=== PATIENT | male | born 1945 | race African-American/Black ===

== ENCOUNTER → 2016-11-27 | Outpatient (CLI) | payer OTHER ==
[~2016-11-27] VITALS: Ht 167.6 cm; Wt 79.4 kg
[~2016-11-27] MED LIST: ADVAIR 250/501 DISK IH; AMLODIPINE BESYL5 MG PO; COMBIVENT RESPIM4 GM IH; COZAAR50 MG PO; FLOMAX0.4 MG PO; LEVAQUIN500 MG PO; MELOXICAM15 MG PO; MICROZIDE12.5 M1 PO; NORVASC10 MG PO; PRAVACHOL40 MG PO; PROTONIX40 MG PO; TRAVATAN Z5 ML BOTH EYES; VITAMIN D31000 UNI2 PO; ZANTAC150 MG PO
== END | disposition home or self-care (01) ==
LOC: AMB 13:34
DX: K57.32 Diverticulitis of large intestine without perforation or abscess without bleeding (principal); K64.8 Other hemorrhoids; Z87.11 Personal history of peptic ulcer disease; I10 Essential (primary) hypertension; J43.9 Emphysema, unspecified; Z99.81 Dependence on supplemental oxygen; G47.30 Sleep apnea, unspecified; E78.5 Hyperlipidemia, unspecified; Z87.891 Personal history of nicotine dependence
CPT/HCPCS: 88305; 93005

== ENCOUNTER 2017-01-15 12:34 | Inpatient (IN) | payer OTHER ==
[~2017-01-15] VITALS: Ht 157.5 cm; Wt 85.0 kg
[2017-01-15 13:24] LABS: EOSINOPHIL (%) 0.3 % (0-5); HEMATOCRIT 48.4 % (38.0-50.0); IMMATURE GRANULOCYTE (%) 0.4 % (0.0-0.7); IMMATURE GRANULOCYTE COUNT 0.1 K/uL; INSTRUMENT ABS NEUTROPHIL CT 10.3 K/uL; LYMPHOCYTE COUNT 0.8 K/uL (1.0-2.8); MCH 28.5 PG (29.0-34.0); MCHC 31.6 G/DL (30.0-36.0); MCV 90.3 FL (86-99); MEAN PLAT.VOLUME 9.7 uM^3 (9.0-12.4); MONOCYTE (%) 10.9 % (3-12); MONOCYTE COUNT 1.4 K/uL (0-0.8); NEUTROPHIL (%) 82.1 % (45-76); NEUTROPHIL COUNT 10.3 K/uL (1.8-6.4); PLATELET COUNT 326 K/uL (156-360); RBC DIS.WIDTH-CV 15.7 % (11.8-14.6); RBC DIS.WIDTH-SD 52.3 % (39-53); RED BLOOD COUNT 5.36 M/uL (4.00-5.50); WHITE BLOOD COUNT 12.6 K/uL (4.1-10.2)
[2017-01-15 13:37] LABS: CHLORIDE 96 mEq/L (99-109); POTASSIUM 4.3 mEq/L (3.7-5.4); SODIUM 142 mEq/L (136-147)
[2017-01-15 13:40] LABS: GLUCOSE 139 mg/dL (70-99)
[2017-01-15 13:41] LABS: ANION GAP 10 MEQ/L (2-14)
[2017-01-15 13:42] LABS: TOTAL BILIRUBIN 0.2 mg/dL (0.0-1.0)
[2017-01-15 13:43] LABS: ALKALINE PHOSPHATASE 79 IU/L (3-129); GFR ESTIMATE (CALCULATED) > 59 mL/min/
[2017-01-15 13:44] LABS: UREA NITROGEN (BUN) 28 mg/dL (9-23)
[2017-01-15 13:47] LABS: LIPASE 9 U/L (1.0-51.0)
[2017-01-15] MEDS ORDERED: PROVENTIL,2.5 MG/3 M IH (17:43)
[2017-01-15] MEDS ORDERED: LINZESS290 MCG PO (17:44)
[2017-01-15] MEDS ORDERED: PREDNISONE10 MG PO (17:44)
[2017-01-15 19:52] LABS: POINT-OF-CARE METER ID UU13113702
[2017-01-16] VITALS (29 sets, daily range): BP systolic 98–181; BP diastolic 53–76
[2017-01-16 02:06] LABS: METH RESISTANT S AUREUS PCR NEGATIVE (NEGATIVE); PROBE CHECK PASS; SPECIMEN PROCESSING CONTROL PASS
[2017-01-16 02:08] LABS: BASE EXCESS 6.8 mEq/L (-3 to +3); BICARBONATE 34.2 mEq/L (22-26); CARBOXY HGB 2.6 % (0-5); COMMENTS - BLOOD GASES C+A+; DEVICE 840 VENT; FI02 30 %; MECHANICAL RATE 14 resp/min; METHEMOGLOBIN 1.5 % (0-1.5); MODE AC; PCO2 62 mm Hg (35-45); PO2 51 mm Hg (80-100); SITE LR; TOTAL RESP RATE 19 resp/min; pH 7.35 (7.35-7.45)
[2017-01-16 02:09] LABS: PEEP 5 CM/H20; TIDAL VOLUME 600 ML
[2017-01-16 04:38] LABS: HEMATOCRIT 38.8 % (38.0-50.0); MCH 28.5 PG (29.0-34.0); MCHC 31.4 G/DL (30.0-36.0); MCV 90.7 FL (86-99); PLATELET COUNT 242 K/uL (156-360); RBC DIS.WIDTH-CV 15.8 % (11.8-14.6); RBC DIS.WIDTH-SD 52.1 % (39-53)
[2017-01-16 04:39] LABS: RED BLOOD COUNT 4.28 M/uL (4.00-5.50); WHITE BLOOD COUNT 8.5 K/uL (4.1-10.2)
[2017-01-16 04:46] LABS: POTASSIUM 4.7 mEq/L (3.7-5.4); SODIUM 143 mEq/L (136-147)
[2017-01-16 04:47] LABS: CHLORIDE 106 mEq/L (99-109); MAGNESIUM 1.5 mg/dL (1.3-2.7)
[2017-01-16 04:48] LABS: GLUCOSE 190 mg/dL (70-99)
[2017-01-16 04:49] LABS: ANION GAP 9 MEQ/L (2-14)
[2017-01-16 04:52] LABS: GFR ESTIMATE (CALCULATED) > 59 mL/min/
[2017-01-16 04:53] LABS: UREA NITROGEN (BUN) 28 mg/dL (9-23)
[2017-01-16 23:54] LABS: POINT-OF-CARE METER ID UU13113731
[2017-01-17] VITALS (24 sets, daily range): BP systolic 104–162; BP diastolic 54–97
[2017-01-17 05:12] LABS: MCH 28.9 PG (29.0-34.0); MCV 90.4 FL (86-99); MEAN PLAT.VOLUME 10.2 uM^3 (9.0-12.4); PLATELET COUNT 228 K/uL (156-360); RBC DIS.WIDTH-CV 16.3 % (11.8-14.6); RBC DIS.WIDTH-SD 54.3 % (39-53)
[2017-01-17 05:13] LABS: RED BLOOD COUNT 3.32 M/uL (4.00-5.50); WHITE BLOOD COUNT 11.8 K/uL (4.1-10.2)
[2017-01-17 05:19] LABS: CHLORIDE 110 mEq/L (99-109); POTASSIUM 4.3 mEq/L (3.7-5.4); SODIUM 145 mEq/L (136-147)
[2017-01-17 05:20] LABS: MAGNESIUM 2.5 mg/dL (1.3-2.7)
[2017-01-17 05:22] LABS: GLUCOSE 181 mg/dL (70-99)
[2017-01-17 05:23] LABS: ANION GAP 8 MEQ/L (2-14)
[2017-01-17 05:26] LABS: GFR ESTIMATE (CALCULATED) > 59 mL/min/; UREA NITROGEN (BUN) 26 mg/dL (9-23)
[2017-01-17 10:31] LABS: BASE EXCESS 4.5 mEq/L (-3 to +3); BICARBONATE 30.3 mEq/L (22-26); CARBOXY HGB 2.1 % (0-5); METHEMOGLOBIN 1.7 % (0-1.5); PO2 47 mm Hg (80-100); pH 7.39 (7.35-7.45)
[2017-01-17 10:36] LABS: COMMENTS - BLOOD GASES NEG A+C+; DEVICE VENT; FI02 30 %; MODE TC; PCO2 50 mm Hg (35-45); PEEP 5 CM/H20; SITE RR; TOTAL RESP RATE 17 resp/min
[2017-01-17 10:50] LABS: BASE EXCESS 5.7 mEq/L (-3 to +3); BICARBONATE 31.9 mEq/L (22-26); CARBOXY HGB 2.3 % (0-5); COMMENTS - BLOOD GASES A+C+; DEVICE 840; FI02 30 %; METHEMOGLOBIN 1.7 % (0-1.5); PCO2 54 mm Hg (35-45); PO2 48 mm Hg (80-100); SITE RRA; pH 7.38 (7.35-7.45)
[2017-01-17 10:51] LABS: MODE TC; PEEP 5 CM/H20; TOTAL RESP RATE 18 resp/min
[2017-01-17 12:45] LABS: POINT-OF-CARE METER ID UU14174217
[2017-01-17 19:05] LABS: POINT-OF-CARE USER ID AGYTJR
[2017-01-18] VITALS (18 sets, daily range): BP systolic 156–186; BP diastolic 71–95
[2017-01-18 06:35] LABS: HEMATOCRIT 30.6 % (38.0-50.0); MCH 28.8 PG (29.0-34.0); MCHC 31.7 G/DL (30.0-36.0); MCV 90.8 FL (86-99); MEAN PLAT.VOLUME 10.4 uM^3 (9.0-12.4); PLATELET COUNT 254 K/uL (156-360); RBC DIS.WIDTH-CV 16.5 % (11.8-14.6); RBC DIS.WIDTH-SD 54.7 % (39-53); RED BLOOD COUNT 3.37 M/uL (4.00-5.50); WHITE BLOOD COUNT 14.6 K/uL (4.1-10.2)
[2017-01-18 06:52] LABS: ANION GAP 6 MEQ/L (2-14); CHLORIDE 109 MEQ/L (99-109); GFR ESTIMATE (CALCULATED) > 59 mL/min/; GLUCOSE 160 mg/dL (70-99); MAGNESIUM 2.3 mg/dl (1.3-2.7); POTASSIUM 4.5 MEQ/L (3.7-5.4); SAMPLE HEMOLYSIS CHECK 0; SAMPLE ICTERIC CHECK 0; SAMPLE LIPEMIA CHECK 0; SODIUM 147 MEQ/L (136-147); UREA NITROGEN (BUN) 19 mg/dL (9-23)
[2017-01-18 14:45] LABS: ADD MIUA? YES; BILIRUBIN NEGATIVE; BLOOD SMALL; COLOR YELLOW ((YELLOW)); GLUCOSE (STRIP) 50; KETONES NEGATIVE; LEUKOCYTES NEGATIVE; NITRITE NEGATIVE; PROTEIN (STRIP) 30; SPECIFIC GRAVITY 1.017 (1.000-1.030); UROBILINOGEN 0.2 MG/DL (0.2-1.0)
[2017-01-18 16:04] LABS: BACTERIA NONE SEEN /HPF; EPITHELIAL CELLS NONE SEEN /HPF; MUCUS TRACE /LPF; RED BLOOD CELLS 15-20 /HPF (0-5); UCUL ADDED? NO; WHITE BLOOD CELLS 0-5 /HPF (0-5)
[2017-01-19] VITALS (9 sets, daily range): BP systolic 139–168; BP diastolic 71–91
[2017-01-19 00:22] LABS: POINT-OF-CARE METER ID UU14174217
[2017-01-19 05:44] LABS: EOSINOPHIL (%) 0 % (0-5); HEMATOCRIT 30.6 % (38.0-50.0); IMMATURE GRANULOCYTE COUNT 0.1 K/uL; INSTRUMENT ABS NEUTROPHIL CT 12.7 K/uL; LYMPHOCYTE COUNT 0.4 K/uL (1.0-2.8); MCH 28.6 PG (29.0-34.0); MCV 89.2 FL (86-99); MEAN PLAT.VOLUME 10.2 uM^3 (9.0-12.4); MONOCYTE (%) 6.1 % (3-12); MONOCYTE COUNT 0.9 K/uL (0-0.8); NEUTROPHIL (%) 89.8 % (45-76); NEUTROPHIL COUNT 12.7 K/uL (1.8-6.4); NRBC (%) 0.2 /100 WBC (0-0); PLATELET COUNT 287 K/uL (156-360); RBC DIS.WIDTH-CV 15.8 % (11.8-14.6); RBC DIS.WIDTH-SD 51.6 % (39-53); RED BLOOD COUNT 3.43 M/uL (4.00-5.50); WHITE BLOOD COUNT 14.2 K/uL (4.1-10.2)
[2017-01-19 06:05] LABS: ANION GAP 7 MEQ/L (2-14); CHLORIDE 105 MEQ/L (99-109); GFR ESTIMATE (CALCULATED) > 59 mL/min/; GLUCOSE 133 mg/dL (70-99); MAGNESIUM 2.2 mg/dl (1.3-2.7); POTASSIUM 4.3 MEQ/L (3.7-5.4); SAMPLE HEMOLYSIS CHECK 0; SAMPLE ICTERIC CHECK 0; SAMPLE LIPEMIA CHECK 0; SODIUM 143 MEQ/L (136-147); UREA NITROGEN (BUN) 21 mg/dL (9-23)
[2017-01-19 18:13] LABS: POINT-OF-CARE METER ID UU14174217
[2017-01-20] VITALS (7 sets, daily range): BP systolic 119–159; BP diastolic 72–102
[2017-01-20 01:18] LABS: POINT-OF-CARE METER ID UU14174217
[2017-01-20 06:23] LABS: HEMATOCRIT 32.9 % (38.0-50.0); MCH 28.6 PG (29.0-34.0); MCHC 32.5 G/DL (30.0-36.0); MEAN PLAT.VOLUME 10.2 uM^3 (9.0-12.4); NRBC (%) 0.2 /100 WBC (0-0); PLATELET COUNT 339 K/uL (156-360); RBC DIS.WIDTH-CV 15.5 % (11.8-14.6); RBC DIS.WIDTH-SD 49.6 % (39-53); RED BLOOD COUNT 3.74 M/uL (4.00-5.50); WHITE BLOOD COUNT 12.8 K/uL (4.1-10.2)
[2017-01-20 06:47] LABS: ANION GAP 8 MEQ/L (2-14); CHLORIDE 105 MEQ/L (99-109); GFR ESTIMATE (CALCULATED) > 59 mL/min/; GLUCOSE 106 mg/dL (70-99); MAGNESIUM 2.2 mg/dl (1.3-2.7); POTASSIUM 4.1 MEQ/L (3.7-5.4); SAMPLE HEMOLYSIS CHECK 0; SAMPLE ICTERIC CHECK 0; SAMPLE LIPEMIA CHECK 0; SODIUM 142 MEQ/L (136-147); UREA NITROGEN (BUN) 22 mg/dL (9-23)
[2017-01-20 13:16] LABS: POINT-OF-CARE METER ID UU13113731
[2017-01-20 17:56] LABS: POINT-OF-CARE METER ID UU13113731
[2017-01-21] VITALS (8 sets, daily range): BP systolic 127–153; BP diastolic 63–72
[2017-01-21 06:02] LABS: EOSINOPHIL (%) 0.7 % (0-5); EOSINOPHIL COUNT 0.1 K/uL (0-0.3); HEMATOCRIT 30.4 % (38.0-50.0); IMMATURE GRANULOCYTE (%) 0.4 % (0.0-0.7); IMMATURE GRANULOCYTE COUNT 0.1 K/uL; INSTRUMENT ABS NEUTROPHIL CT 10.2 K/uL; LYMPHOCYTE COUNT 0.9 K/uL (1.0-2.8); MCHC 32.9 G/DL (30.0-36.0); MCV 88.1 FL (86-99); MEAN PLAT.VOLUME 10.3 uM^3 (9.0-12.4); MONOCYTE (%) 6.7 % (3-12); MONOCYTE COUNT 0.8 K/uL (0-0.8); NEUTROPHIL (%) 84.9 % (45-76); NEUTROPHIL COUNT 10.2 K/uL (1.8-6.4); PLATELET COUNT 320 K/uL (156-360); RBC DIS.WIDTH-CV 15.7 % (11.8-14.6); RBC DIS.WIDTH-SD 50.4 % (39-53); RED BLOOD COUNT 3.45 M/uL (4.00-5.50)
[2017-01-21 06:33] LABS: ANION GAP 6 MEQ/L (2-14); CHLORIDE 105 MEQ/L (99-109); GFR ESTIMATE (CALCULATED) > 59 mL/min/; GLUCOSE 93 mg/dL (70-99); MAGNESIUM 2.1 mg/dl (1.3-2.7); POTASSIUM 3.8 MEQ/L (3.7-5.4); SAMPLE HEMOLYSIS CHECK 0; SAMPLE ICTERIC CHECK 0; SAMPLE LIPEMIA CHECK 0; SODIUM 142 MEQ/L (136-147); UREA NITROGEN (BUN) 18 mg/dL (9-23)
[2017-01-21 12:51] LABS: POINT-OF-CARE METER ID UU14174217
[2017-01-21 16:52] LABS: POINT-OF-CARE METER ID UU14149397
[2017-01-22 03:55] VITALS: BP 155/72
[2017-01-22 05:03] LABS: CHLORIDE 105 mEq/L (99-109); POTASSIUM 4.1 mEq/L (3.7-5.4); SODIUM 141 mEq/L (136-147)
[2017-01-22 05:05] LABS: GLUCOSE 126 mg/dL (70-99)
[2017-01-22 05:06] LABS: ANION GAP 7 MEQ/L (2-14); HEMATOCRIT 29.9 % (38.0-50.0); MCH 28.7 PG (29.0-34.0); MCHC 32.8 G/DL (30.0-36.0); MCV 87.4 FL (86-99); MEAN PLAT.VOLUME 10.1 uM^3 (9.0-12.4); PLATELET COUNT 358 K/uL (156-360); RBC DIS.WIDTH-CV 15.5 % (11.8-14.6); RBC DIS.WIDTH-SD 49.1 % (39-53); RED BLOOD COUNT 3.42 M/uL (4.00-5.50); WHITE BLOOD COUNT 14.1 K/uL (4.1-10.2)
[2017-01-22 05:09] LABS: GFR ESTIMATE (CALCULATED) > 59 mL/min/
[2017-01-22 05:10] LABS: UREA NITROGEN (BUN) 16 mg/dL (9-23)
[2017-01-22 05:14] LABS: MAGNESIUM 1.9 mg/dL (1.3-2.7)
[2017-01-22 08:31] VITALS: BP 162/78
[2017-01-22 16:58] VITALS: BP 160/77
[2017-01-22 18:41] VITALS: BP 160/77
[2017-01-22 19:31] VITALS: BP 169/76
[2017-01-22 21:34] LABS: POINT-OF-CARE METER ID UU14188577
[2017-01-22 23:11] VITALS: BP 168/77
[2017-01-23 04:45] VITALS: BP 164/70
[2017-01-23 06:05] LABS: EOSINOPHIL (%) 0.6 % (0-5); EOSINOPHIL COUNT 0.1 K/uL (0-0.3); HEMATOCRIT 32.2 % (38.0-50.0); IMMATURE GRANULOCYTE (%) 0.4 % (0.0-0.7); IMMATURE GRANULOCYTE COUNT 0.1 K/uL; INSTRUMENT ABS NEUTROPHIL CT 10.9 K/uL; LYMPHOCYTE COUNT 0.4 K/uL (1.0-2.8); MCH 28.5 PG (29.0-34.0); MCHC 32.9 G/DL (30.0-36.0); MCV 86.6 FL (86-99); MEAN PLAT.VOLUME 11.1 uM^3 (9.0-12.4); MONOCYTE (%) 5.1 % (3-12); MONOCYTE COUNT 0.6 K/uL (0-0.8); NEUTROPHIL (%) 90.1 % (45-76); NEUTROPHIL COUNT 10.9 K/uL (1.8-6.4); PLATELET COUNT 395 K/uL (156-360); RBC DIS.WIDTH-CV 15.5 % (11.8-14.6); RBC DIS.WIDTH-SD 48.2 % (39-53); RED BLOOD COUNT 3.72 M/uL (4.00-5.50); WHITE BLOOD COUNT 12.1 K/uL (4.1-10.2)
[2017-01-23 06:09] LABS: POINT-OF-CARE METER ID UU14188577
[2017-01-23 06:19] LABS: ANION GAP 8 MEQ/L (2-14); CHLORIDE 99 MEQ/L (99-109); GFR ESTIMATE (CALCULATED) > 59 mL/min/; GLUCOSE 115 mg/dL (70-99); MAGNESIUM 1.9 mg/dl (1.3-2.7); POTASSIUM 4.1 MEQ/L (3.7-5.4); SAMPLE HEMOLYSIS CHECK 0; SAMPLE ICTERIC CHECK 0; SAMPLE LIPEMIA CHECK 0; SODIUM 137 MEQ/L (136-147); UREA NITROGEN (BUN) 11 mg/dL (9-23)
[2017-01-23 08:30] VITALS: BP 169/85
[2017-01-23 12:07] VITALS: BP 138/67
[2017-01-23 23:21] VITALS: BP 142/69
[2017-01-24 05:23] LABS: EOSINOPHIL (%) 0.2 % (0-5); HEMATOCRIT 28.9 % (38.0-50.0); IMMATURE GRANULOCYTE (%) 0.4 % (0.0-0.7); IMMATURE GRANULOCYTE COUNT 0.1 K/uL; INSTRUMENT ABS NEUTROPHIL CT 10.8 K/uL; LYMPHOCYTE COUNT 0.4 K/uL (1.0-2.8); MCH 28.4 PG (29.0-34.0); MCHC 33.6 G/DL (30.0-36.0); MCV 84.8 FL (86-99); MEAN PLAT.VOLUME 9.4 uM^3 (9.0-12.4); MONOCYTE COUNT 0.6 K/uL (0-0.8); NEUTROPHIL (%) 90.7 % (45-76); NEUTROPHIL COUNT 10.8 K/uL (1.8-6.4); PLATELET COUNT 429 K/uL (156-360); RBC DIS.WIDTH-CV 15.3 % (11.8-14.6); RED BLOOD COUNT 3.41 M/uL (4.00-5.50); WHITE BLOOD COUNT 11.9 K/uL (4.1-10.2)
[2017-01-24 05:49] LABS: ANION GAP 5 MEQ/L (2-14); CHLORIDE 100 MEQ/L (99-109); GFR ESTIMATE (CALCULATED) > 59 mL/min/; GLUCOSE 133 mg/dL (70-99); POTASSIUM 3.6 MEQ/L (3.7-5.4); SAMPLE HEMOLYSIS CHECK 0; SAMPLE ICTERIC CHECK 0; SAMPLE LIPEMIA CHECK 0; SODIUM 137 MEQ/L (136-147); UREA NITROGEN (BUN) 11 mg/dL (9-23)
[2017-01-24 06:47] LABS: POINT-OF-CARE METER ID UU14188577
[2017-01-24 07:50] VITALS: BP 130/69
[2017-01-24 12:22] LABS: POINT-OF-CARE METER ID UU14188577
[2017-01-24 15:40] VITALS: BP 133/69
[2017-01-24 17:22] LABS: POINT-OF-CARE METER ID UU14188577
[2017-01-24 21:38] LABS: POINT-OF-CARE METER ID UU14188577
[2017-01-25 00:11] VITALS: BP 132/68
[2017-01-25 05:35] LABS: MCH 28.6 PG (29.0-34.0); MCHC 33.2 G/DL (30.0-36.0); MCV 86.1 FL (86-99); MEAN PLAT.VOLUME 10.5 uM^3 (9.0-12.4); PLATELET COUNT 450 K/uL (156-360); RBC DIS.WIDTH-CV 15.8 % (11.8-14.6); RBC DIS.WIDTH-SD 48.9 % (39-53); WHITE BLOOD COUNT 13.1 K/uL (4.1-10.2)
[2017-01-25 05:54] LABS: ANION GAP 8 MEQ/L (2-14); CHLORIDE 99 MEQ/L (99-109); GFR ESTIMATE (CALCULATED) > 59 mL/min/; GLUCOSE 113 mg/dL (70-99); MAGNESIUM 1.9 mg/dl (1.3-2.7); POTASSIUM 4.1 MEQ/L (3.7-5.4); PREALBUMIN 18.1 mg/dL (10-40); SAMPLE HEMOLYSIS CHECK 0; SAMPLE ICTERIC CHECK 0; SAMPLE LIPEMIA CHECK 0; SODIUM 138 MEQ/L (136-147); UREA NITROGEN (BUN) 10 mg/dL (9-23)
[2017-01-25 06:29] LABS: POINT-OF-CARE METER ID UU14149397
[2017-01-25 06:56] LABS: POINT-OF-CARE METER ID UU14149397
[2017-01-25 08:30] VITALS: BP 155/72
[2017-01-25 11:58] LABS: POINT-OF-CARE METER ID UU14149397
[2017-01-25 15:59] VITALS: BP 144/68
[2017-01-26 00:12] VITALS: BP 144/70
[2017-01-26 06:37] LABS: EOSINOPHIL (%) 0.7 % (0-5); EOSINOPHIL COUNT 0.1 K/uL (0-0.3); HEMATOCRIT 29.4 % (38.0-50.0); IMMATURE GRANULOCYTE (%) 0.5 % (0.0-0.7); IMMATURE GRANULOCYTE COUNT 0.1 K/uL; INSTRUMENT ABS NEUTROPHIL CT 12.7 K/uL; LYMPHOCYTE COUNT 0.6 K/uL (1.0-2.8); MCH 29.9 PG (29.0-34.0); MCV 85.2 FL (86-99); MEAN PLAT.VOLUME 9.3 uM^3 (9.0-12.4); MONOCYTE (%) 7.7 % (3-12); MONOCYTE COUNT 1.1 K/uL (0-0.8); NEUTROPHIL (%) 86.7 % (45-76); NEUTROPHIL COUNT 12.7 K/uL (1.8-6.4); PLATELET COUNT 487 K/uL (156-360); RBC DIS.WIDTH-CV 15.8 % (11.8-14.6); RBC DIS.WIDTH-SD 48.7 % (39-53); RED BLOOD COUNT 3.45 M/uL (4.00-5.50); WHITE BLOOD COUNT 14.7 K/uL (4.1-10.2)
[2017-01-26 06:59] LABS: ALKALINE PHOSPHATASE 56 IU/L (3-129); ANION GAP 7 MEQ/L (2-14); CHLORIDE 98 MEQ/L (99-109); DIRECT BILIRUBIN 0.1 mg/dL (0.0-0.3); GFR ESTIMATE (CALCULATED) > 59 mL/min/; GLUCOSE 96 mg/dL (70-99); MAGNESIUM 1.8 mg/dl (1.3-2.7); POTASSIUM 4.1 MEQ/L (3.7-5.4); SAMPLE HEMOLYSIS CHECK 0; SAMPLE ICTERIC CHECK 0; SAMPLE LIPEMIA CHECK 0; SODIUM 137 MEQ/L (136-147); TOTAL BILIRUBIN 0.3 MG/DL (0.0-1.0); TRIGLYCERIDES 109 MG/DL (Normal: <150); UREA NITROGEN (BUN) 14 mg/dL (9-23)
[2017-01-26 07:21] LABS: POINT-OF-CARE METER ID UU14188577
[2017-01-26 08:22] VITALS: BP 127/60
[2017-01-26 16:48] VITALS: BP 134/63
[2017-01-26 23:18] LABS: POINT-OF-CARE METER ID UU14188577
[2017-01-27 00:12] VITALS: BP 137/71
[2017-01-27 06:28] LABS: POINT-OF-CARE METER ID UU14188577
[2017-01-27 08:25] VITALS: BP 127/96
[2017-01-27 17:38] VITALS: BP 138/66
[2017-01-27 23:04] VITALS: BP 128/59
[2017-01-28 06:13] LABS: POINT-OF-CARE METER ID UU14149397
[2017-01-28 09:00] VITALS: BP 157/72
[2017-01-28 16:57] VITALS: BP 128/63
[2017-01-28 17:24] LABS: POINT-OF-CARE METER ID UU14188577
[2017-01-28 23:55] VITALS: BP 121/59
[2017-01-29 03:58] VITALS: BP 126/65
[2017-01-29 06:48] LABS: POINT-OF-CARE METER ID UU14149397
[2017-01-29 08:06] VITALS: BP 130/67
[2017-01-29] MEDS ORDERED: TYLENOL REGULA325 MG PO (14:26)
[2017-01-29] MEDS ORDERED: METOCLOPRAMIDE10 MG PO (14:26)
[2017-01-29] MEDS ORDERED: BACTRIM,SEPT1 TABLET PO (14:26)
[2017-01-29] MEDS ORDERED: HYDROCODON-ACE1 EAC7 PO (14:26)
[2017-01-29] MEDS ORDERED: NOVOLOG PE100 UNITS/ SC (15:51)
[2017-01-29] MEDS ORDERED: DULCOLAX10 MG PR (15:51)
[2017-01-29] MEDS ORDERED: REGLAN10 MG PO (15:52)
[2017-01-29] MEDS ORDERED: PEPCID40 MG PO (15:53)
[2017-01-29] MEDS ORDERED: XALATAN2.5 ML BOTH EYES (15:54)
== END 2017-01-29 15:17 | DRG 329 ==
LOC: EME 12:34 → SDC 19:56 → EME 19:56 → 4WEST 23:11 → 2SOUTH 23:11 → 4WEST 01-16 00:31 → 3EAST 01-21 13:08
PROVIDERS: Emergency Medicine; Hospitalist; Internal Medicine; Student in an Organized Health Care Education/Training Program; Surgery
DX: K56.60 Unspecified intestinal obstruction (principal); R00.0 Tachycardia, unspecified; E86.0 Dehydration; K59.00 Constipation, unspecified; J44.9 Chronic obstructive pulmonary disease, unspecified; K56.5 Intestinal adhesions [bands] with obstruction (postinfection); R11.10 Vomiting, unspecified; E78.5 Hyperlipidemia, unspecified; I10 Essential (primary) hypertension; K21.9 Gastro-esophageal reflux disease without esophagitis; J96.11 Chronic respiratory failure with hypoxia; J45.909 Unspecified asthma, uncomplicated; K44.9 Diaphragmatic hernia without obstruction or gangrene; K22.2 Esophageal obstruction; K22.6 Gastro-esophageal laceration-hemorrhage syndrome; Z87.11 Personal history of peptic ulcer disease; Z99.81 Dependence on supplemental oxygen; Z87.891 Personal history of nicotine dependence; Z79.52 Long term (current) use of systemic steroids
CPT/HCPCS: 36600; 71010; 71020; 74000; 74020; 74177; 80048; 80053; 81003; 82040; 82248; 82803; 82948; 83690; 83735; 84100; 84134; 84478; 84630 90; 85025; 85027; 87040; 87070; 87075; 87077; 87086; 87106; 87186; 87205; 87641; 88307; 93005; 94002; 94003; 94010; 94640; 94640 76; 94760; 94799; 97530 GO; 97530 GP; 99202; 99281; 99285; J0330; J0360; J1200; J1815; J2250; J2270; J2405; J2704; J2795; J2920; J2930; J3010; J3475; J7030; J7040; J7050; J7512; S0028

== ENCOUNTER 2017-01-29 13:57 | Inpatient (IN) | payer OTHER ==
[~2017-01-29] VITALS: Ht 165.1 cm; Wt 71.0 kg
[~2017-01-29 13:57] MED LIST changes: +LINZESS290 MCG PO; +PREDNISONE10 MG PO; +PROVENTIL,2.5 MG/3 M IH
[2017-01-29] MEDS ORDERED: TYLENOL REGULA325 MG PO (14:26)
[2017-01-29] MEDS ORDERED: BACTRIM,SEPT1 TABLET PO (14:26)
[2017-01-29] MEDS ORDERED: HYDROCODON-ACE1 EAC7 PO (14:26)
[2017-01-29] MEDS ORDERED: METOCLOPRAMIDE10 MG PO (14:26)
[2017-01-29 15:30] VITALS: BP 131/64
[2017-01-29] MEDS ORDERED: DULCOLAX10 MG PR (15:51)
[2017-01-29] MEDS ORDERED: NOVOLOG PE100 UNITS/ SC (15:51)
[2017-01-29] MEDS ORDERED: REGLAN10 MG PO (15:52)
[2017-01-29] MEDS ORDERED: PEPCID40 MG PO (15:53)
[2017-01-29] MEDS ORDERED: XALATAN2.5 ML BOTH EYES (15:54)
[2017-01-29 16:43] LABS: POINT-OF-CARE METER ID UU14174215
[2017-01-29 21:02] LABS: POINT-OF-CARE METER ID UU14174215
[2017-01-30 05:14] VITALS: BP 127/67
[2017-01-30 06:12] LABS: HEMATOCRIT 31.7 % (38.0-50.0); MCH 28.1 PG (29.0-34.0); MCHC 33.4 G/DL (30.0-36.0); MCV 84.1 FL (86-99); MEAN PLAT.VOLUME 9.2 uM^3 (9.0-12.4); PLATELET COUNT 501 K/uL (156-360); RBC DIS.WIDTH-CV 15.9 % (11.8-14.6); RBC DIS.WIDTH-SD 48.9 % (39-53); RED BLOOD COUNT 3.77 M/uL (4.00-5.50); WHITE BLOOD COUNT 11.8 K/uL (4.1-10.2)
[2017-01-30 06:48] LABS: POINT-OF-CARE METER ID UU14174215; POINT-OF-CARE USER ID ENVGAF
[2017-01-30 06:49] LABS: ALKALINE PHOSPHATASE 51 IU/L (3-129); ANION GAP 6 MEQ/L (2-14); CHLORIDE 97 MEQ/L (99-109); GFR ESTIMATE (CALCULATED) > 59 mL/min/; GLUCOSE 107 mg/dL (70-99); POTASSIUM 4.2 MEQ/L (3.7-5.4); SAMPLE HEMOLYSIS CHECK 0; SAMPLE ICTERIC CHECK 0; SAMPLE LIPEMIA CHECK 0; SODIUM 136 MEQ/L (136-147); TOTAL BILIRUBIN 0.3 MG/DL (0.0-1.0); UREA NITROGEN (BUN) 18 mg/dL (9-23)
[2017-01-30 11:18] LABS: POINT-OF-CARE METER ID UU14174215; POINT-OF-CARE USER ID ENVGAF
[2017-01-30 14:43] VITALS: BP 136/63
[2017-01-30 16:22] LABS: POINT-OF-CARE METER ID UU14174215
[2017-01-30 21:16] LABS: POINT-OF-CARE METER ID UU14174215
[2017-01-31 05:13] VITALS: BP 127/78
[2017-01-31 06:47] LABS: POINT-OF-CARE METER ID UU14174215; POINT-OF-CARE USER ID ENVGAF
[2017-01-31 11:48] LABS: POINT-OF-CARE METER ID UU13113720
[2017-01-31 15:00] VITALS: BP 136/60
[2017-01-31 16:17] LABS: POINT-OF-CARE METER ID UU14174215
[2017-01-31 21:13] LABS: POINT-OF-CARE METER ID UU13113720; POINT-OF-CARE USER ID 610211320
[2017-02-01 04:18] VITALS: BP 122/70
[2017-02-01 08:05] LABS: POINT-OF-CARE METER ID UU13113720
[2017-02-01 11:53] LABS: POINT-OF-CARE METER ID UU13113720
[2017-02-01 15:39] VITALS: BP 126/61
[2017-02-01 16:42] LABS: POINT-OF-CARE METER ID UU13113720
[2017-02-01 21:53] LABS: POINT-OF-CARE METER ID UU13113720
[2017-02-02 05:03] VITALS: BP 131/70
[2017-02-02 06:52] LABS: POINT-OF-CARE METER ID UU13113720
[2017-02-02 11:24] LABS: POINT-OF-CARE METER ID UU13113720
[2017-02-02 15:20] VITALS: BP 124/67
[2017-02-02 16:15] LABS: POINT-OF-CARE METER ID UU13113720
[2017-02-02 21:48] LABS: POINT-OF-CARE METER ID UU13113720
[2017-02-03 05:27] VITALS: BP 128/61
[2017-02-03 06:36] LABS: POINT-OF-CARE METER ID UU13113720; POINT-OF-CARE USER ID ENVGAF
[2017-02-03 11:25] LABS: POINT-OF-CARE METER ID UU13113720; POINT-OF-CARE USER ID ENVGAF
[2017-02-03 15:28] VITALS: BP 127/60
[2017-02-03 16:14] LABS: POINT-OF-CARE METER ID UU13113720; POINT-OF-CARE USER ID ENVGAF
[2017-02-03 21:18] LABS: POINT-OF-CARE METER ID UU13113720
[2017-02-04 05:05] VITALS: BP 116/63
[2017-02-04 06:44] LABS: POINT-OF-CARE METER ID UU14174215; POINT-OF-CARE USER ID ENVGAF
[2017-02-04 11:12] LABS: POINT-OF-CARE METER ID UU14174215
[2017-02-04 15:06] VITALS: BP 101/57
[2017-02-04 16:14] LABS: POINT-OF-CARE METER ID UU14174215; POINT-OF-CARE USER ID ENVGAF
[2017-02-04 21:17] LABS: POINT-OF-CARE METER ID UU14174215
[2017-02-05 05:51] VITALS: BP 114/67
[2017-02-05 07:40] LABS: POINT-OF-CARE METER ID UU13113720
[2017-02-05 11:27] LABS: POINT-OF-CARE METER ID UU13113720
[2017-02-05 15:48] VITALS: BP 122/57
[2017-02-05 16:39] LABS: POINT-OF-CARE METER ID UU13113720
[2017-02-05 21:37] LABS: POINT-OF-CARE METER ID UU13113720
[2017-02-06 04:30] VITALS: BP 110/54
[2017-02-06 08:00] LABS: POINT-OF-CARE METER ID UU13113720; POINT-OF-CARE USER ID AHSSSJB31
[2017-02-06 12:07] LABS: POINT-OF-CARE METER ID UU13113720; POINT-OF-CARE USER ID AHSSSJB31
[2017-02-06 12:38] LABS: EOSINOPHIL (%) 0.7 % (0-5); EOSINOPHIL COUNT 0.1 K/uL (0-0.3); HEMATOCRIT 34.8 % (38.0-50.0); IMMATURE GRANULOCYTE (%) 0.7 % (0.0-0.7); IMMATURE GRANULOCYTE COUNT 0.1 K/uL; INSTRUMENT ABS NEUTROPHIL CT 14.8 K/uL; LYMPHOCYTE COUNT 1.1 K/uL (1.0-2.8); MCH 28.7 PG (29.0-34.0); MCV 86.8 FL (86-99); MEAN PLAT.VOLUME 9.6 uM^3 (9.0-12.4); MONOCYTE COUNT 1.4 K/uL (0-0.8); NEUTROPHIL (%) 84.3 % (45-76); NEUTROPHIL COUNT 14.8 K/uL (1.8-6.4); NRBC (%) 0.1 /100 WBC (0-0); PLATELET COUNT 411 K/uL (156-360); RBC DIS.WIDTH-CV 17.6 % (11.8-14.6); RBC DIS.WIDTH-SD 55.2 % (39-53); RED BLOOD COUNT 4.01 M/uL (4.00-5.50); WHITE BLOOD COUNT 17.6 K/uL (4.1-10.2)
[2017-02-06 12:41] LABS: CHLORIDE 101 mEq/L (99-109); POTASSIUM 4.5 mEq/L (3.7-5.4); SODIUM 138 mEq/L (136-147)
[2017-02-06 12:44] LABS: GLUCOSE 97 mg/dL (70-99)
[2017-02-06 12:45] LABS: ANION GAP 14 MEQ/L (2-14)
[2017-02-06 12:46] LABS: TOTAL BILIRUBIN 0.3 mg/dL (0.0-1.0)
[2017-02-06 12:47] LABS: ALKALINE PHOSPHATASE 56 IU/L (3-129); GFR ESTIMATE (CALCULATED) > 59 mL/min/
[2017-02-06 12:48] LABS: UREA NITROGEN (BUN) 19 mg/dL (9-23)
[2017-02-06 15:18] VITALS: BP 139/63
[2017-02-06 16:31] LABS: POINT-OF-CARE METER ID UU13113720
[2017-02-06 21:43] LABS: POINT-OF-CARE METER ID UU13113720
[2017-02-07 06:03] VITALS: BP 136/69
[2017-02-07 07:16] LABS: POINT-OF-CARE METER ID UU14174215; POINT-OF-CARE USER ID AHSSSJB31
[2017-02-07] MEDS ORDERED: SENNA PLUS TAB1 EACH PO (09:21)
[2017-02-07] MEDS ORDERED: FAMOTIDINE20 MG PO (09:21)
[2017-02-07] MEDS ORDERED: SPIRIVA RESPIMAT4 GM IH (09:21)
[2017-02-07] MEDS ORDERED: PREDNISONE10 MG PO (09:21)
[2017-02-07] MEDS ORDERED: FLOMAX0.4 MG PO (10:49)
[2017-02-07 11:03] LABS: POINT-OF-CARE METER ID UU13113720
== END 2017-02-07 12:41 | disposition home health service (06) | DRG 945 ==
LOC: 3WEST 13:57
PROVIDERS: Physical Medicine & Rehabilitation Pain Medicine; Psychiatry & Neurology Neurology
PROC: F07M0ZZ Range of Motion and Joint Mobility Treatment of Musculoskeletal System - Whole Body (ICD-10-PCS; principal; 2017-01-29)
DX: R53.1 Weakness (principal); R26.2 Difficulty in walking, not elsewhere classified; G89.18 Other acute postprocedural pain; R10.9 Unspecified abdominal pain; J44.1 Chronic obstructive pulmonary disease with (acute) exacerbation; Z99.81 Dependence on supplemental oxygen; T81.4XXA Infection following a procedure, initial encounter; L02.211 Cutaneous abscess of abdominal wall; B96.89 Other specified bacterial agents as the cause of diseases classified elsewhere; K56.69 Other intestinal obstruction; D72.829 Elevated white blood cell count, unspecified; T38.0X5A Adverse effect of glucocorticoids and synthetic analogues, initial encounter; R73.9 Hyperglycemia, unspecified; I10 Essential (primary) hypertension; E78.5 Hyperlipidemia, unspecified; J45.909 Unspecified asthma, uncomplicated; K44.9 Diaphragmatic hernia without obstruction or gangrene; K59.09 Other constipation; E77.8 Other disorders of glycoprotein metabolism; D62 Acute posthemorrhagic anemia; K57.30 Diverticulosis of large intestine without perforation or abscess without bleeding; Z87.891 Personal history of nicotine dependence; Z87.11 Personal history of peptic ulcer disease
CPT/HCPCS: 71020; 80053; 82948; 85025; 85027; 94640 76; 94799; 97110 GO; 97530 GP; J1650; J7512

== ENCOUNTER 2017-08-27 14:46 | Emergency (ER) | payer OTHER ==
[~2017-08-27] VITALS: Ht 172.7 cm; Wt 80.3 kg
[~2017-08-27 14:46] MED LIST changes: +BACTRIM,SEPT1 TABLET PO; +DULCOLAX10 MG PR; +FAMOTIDINE20 MG PO; +HYDROCODON-ACE1 EAC7 PO; +METOCLOPRAMIDE10 MG PO; +NOVOLOG PE100 UNITS/ SC; +PEPCID40 MG PO; +REGLAN10 MG PO; +SENNA PLUS TAB1 EACH PO; +SPIRIVA RESPIMAT4 GM IH; +TYLENOL REGULA325 MG PO; +XALATAN2.5 ML BOTH EYES
[2017-08-27] MEDS ORDERED: PREDNISONE20 MG PO (16:15)
[2017-08-27] MEDS ORDERED: DUONEB 2.5-0.5 M3 ML AEROSOL (16:23)
[2017-08-27] MEDS ORDERED: NEBULIZER MC (16:23)
[2017-08-27 18:43] VITALS: BP 150/73
== END 2017-08-27 19:18 | disposition home or self-care (01) ==
LOC: EME 14:46
DX: J44.1 Chronic obstructive pulmonary disease with (acute) exacerbation (principal); J06.9 Acute upper respiratory infection, unspecified; K21.9 Gastro-esophageal reflux disease without esophagitis; I10 Essential (primary) hypertension; E78.5 Hyperlipidemia, unspecified; Z87.891 Personal history of nicotine dependence
CPT/HCPCS: 71010; 94644; 99281; 99284; J7512; J7644

== ENCOUNTER 2017-10-23 19:22 | Emergency (ER) | payer OTHER ==
[~2017-10-23] VITALS: Ht 177.8 cm; Wt 76.8 kg
[~2017-10-23 19:22] MED LIST changes: +DUONEB 2.5-0.5 M3 ML AEROSOL; +NEBULIZER MC; +PREDNISONE20 MG PO
[2017-10-23 19:59] LABS: HEMATOCRIT 40.6 % (38.0-50.0); HEMOGLOBIN 13.2 G/DL (12.5-16.6); MCH 28.3 PG (29.0-34.0); MCHC 32.5 G/DL (30.0-36.0); MCV 86.9 FL (86-99); PLATELET COUNT 355 K/uL (156-360); RBC DIS.WIDTH-SD 44.8 % (39-53); RED BLOOD COUNT 4.67 M/uL (4.00-5.50); WHITE BLOOD COUNT 11.2 K/uL (4.1-10.2)
[2017-10-23 20:12] LABS: CHLORIDE 98 mEq/L (99-109); POTASSIUM 3.7 mEq/L (3.7-5.4); SODIUM 141 mEq/L (136-147)
[2017-10-23 20:14] LABS: GLUCOSE 129 mg/dL (70-99)
[2017-10-23 20:18] LABS: GFR ESTIMATE (CALCULATED) > 59 mL/min/ (58.99-99999); UREA NITROGEN (BUN) 15 mg/dL (9-23)
[2017-10-23 20:20] LABS: TROP-I INTERPRETATION NEGATIVE; TROPONIN-I < 0.01 ng/mL (0.0-0.30)
[2017-10-23 21:26] LABS: ALBUMIN 4.3 g/dL (3.2-4.8)
[2017-10-23 21:29] LABS: TOTAL PROTEIN 7.7 g/dL (6.4-8.3)
[2017-10-23 21:30] LABS: TOTAL BILIRUBIN 0.2 mg/dL (0.0-1.0)
[2017-10-23 21:32] LABS: ALKALINE PHOSPHATASE 87 IU/L (3-129)
[2017-10-23 21:34] LABS: AST (GOT) 18 IU/L (2-34); DIRECT BILIRUBIN 0.1 mg/dL (0.0-0.3)
[2017-10-23 21:35] LABS: ALT (GPT) 16 IU/L (3-49); LIPASE 26 U/L (1.0-51.0)
[2017-10-23 21:52] LABS: D-DIMER ELISA < 150.00 ng/mLDDU (<230)
[2017-10-23] MEDS ORDERED: ZOFRAN ODT4 MG PO (22:05)
[2017-10-23] MEDS ORDERED: AZITHROMYCIN250 MG PO (22:05)
[2017-10-23] MEDS ORDERED: PREDNISONE10 M1 PO (22:05)
[2017-10-23 22:10] VITALS: BP 177/101
== END 2017-10-23 22:20 | disposition home or self-care (01) ==
LOC: EME 19:22
PROVIDERS: Emergency Medicine
DX: J44.1 Chronic obstructive pulmonary disease with (acute) exacerbation (principal); R11.0 Nausea; Z87.891 Personal history of nicotine dependence; E78.5 Hyperlipidemia, unspecified; I10 Essential (primary) hypertension; K21.9 Gastro-esophageal reflux disease without esophagitis
CPT/HCPCS: 71046; 80048; 80076; 83690; 83880; 84484; 85027; 85379; 87502; 93005; 99281; 99284

== ENCOUNTER 2017-12-14 23:02 | Emergency (ER) | payer OTHER ==
[~2017-12-14] VITALS: Ht 170.2 cm; Wt 73.7 kg
[~2017-12-14 23:02] MED LIST changes: +AZITHROMYCIN250 MG PO; +PREDNISONE10 M1 PO; +ZOFRAN ODT4 MG PO
[2017-12-14 23:29] LABS: HEMATOCRIT 39.7 % (38.0-50.0); HEMOGLOBIN 12.4 G/DL (12.5-16.6); MCH 27.7 PG (29.0-34.0); MCHC 31.2 G/DL (30.0-36.0); MCV 88.8 FL (86-99); PLATELET COUNT 343 K/uL (156-360); RBC DIS.WIDTH-CV 14.3 % (11.8-14.6); RBC DIS.WIDTH-SD 46.4 % (39-53); RED BLOOD COUNT 4.47 M/uL (4.00-5.50); WHITE BLOOD COUNT 10.8 K/uL (4.1-10.2)
[2017-12-14 23:40] LABS: CHLORIDE 97 mEq/L (99-109); SODIUM 142 mEq/L (136-147)
[2017-12-14 23:41] LABS: GLUCOSE 110 mg/dL (70-99)
[2017-12-14 23:45] LABS: CREATININE 0.9 mg/dL (0.6-1.3); GFR ESTIMATE (CALCULATED) > 59 mL/min/ (58.99-99999)
[2017-12-14 23:46] LABS: UREA NITROGEN (BUN) 10 mg/dL (9-23)
[2017-12-14 23:50] LABS: TROP-I INTERPRETATION NEGATIVE; TROPONIN-I < 0.01 ng/mL (0.0-0.30)
[2017-12-15] MEDS ORDERED: PREDNISONE20 MG PO (00:31)
[2017-12-15 01:23] VITALS: BP 152/83
== END 2017-12-15 01:24 | disposition home or self-care (01) ==
LOC: EME → EDBD 23:02 → EME 23:02
DX: J44.1 Chronic obstructive pulmonary disease with (acute) exacerbation (principal); R00.0 Tachycardia, unspecified; R94.31 Abnormal electrocardiogram [ECG] [EKG]; I10 Essential (primary) hypertension; K21.9 Gastro-esophageal reflux disease without esophagitis; E78.5 Hyperlipidemia, unspecified; Z79.51 Long term (current) use of inhaled steroids; Z99.81 Dependence on supplemental oxygen; Z87.891 Personal history of nicotine dependence; Z87.19 Personal history of other diseases of the digestive system
CPT/HCPCS: 71046; 80048; 84484; 85027; 93005; 94640; 94799; 99281; 99285; J1100; J7644